=== PATIENT | male | born 1990 | race Hispanic/Latino ===

== ENCOUNTER 2024-09-20 17:00 | Emergency (ER) | payer BC ==
[~2024-09-20] VITALS: Ht 167.6 cm; Wt 104.3 kg
[2024-09-20 17:17] VITALS: BP 150/88; PULSE 113; RESP 22; TEMP 98.5; O2SAT 99
[2024-09-20] MEDS: ketOROlac 30MG VIAL (30MG/ML) IM ONE (17:25)
--- NOTE | 2024-09-20 17:37 | ERN ---
ED Note History of Present Illness Stated Complaint: SIDE PAIN;KIDNEY STONE Chief Complaint: Flank Pain Time Seen by MD: 17:29 Time Seen by Midlevel: 17:29 Dictation: The patient is a 34-year-old male with a history of kidney stones who presents to the emergency department with complaints of right flank pain onset Tuesday. Patient denies any fevers, denies any trauma, denies any hematuria. Allergies: Coded Allergies: No Known Drug Allergies (Unverified Allergy, Unknown, 09/20/24) Past Medical History Past Medical History: No Pertinent History Surgical History: None RN Note Reviewed/Agreed w/PFSH: Yes Review of System Dictation Constitutional: Negative for fever,chills, and weight loss Eyes: Negative for injury, pain,redness, and discharge ENT: Negative for injury,pain or swelling Cardiovascular: Negative for chest pain, palpitations, and edema Respiratory: Negative for shortness of breath, cough, and wheezing, Abdomen/GI: Negative for abdominal pain, nausea, vomiting, diarrhea, and constipation Back: Positive for right flank pain : Negative for injury, bleeding and discharge MS/Extremity: Negative for injury and deformity Skin: Negative for rash, and discoloration Neuro: Negative for headache, weakness, numbness, tingling, and seizure Psych: Negative for suicide ideation, homicidal ideation, and hallucinations Initial Vital Sign VS Vital Signs Date Time Temp Pulse Resp B/P (MAP) Pulse Ox O2 Delivery O2 Flow Rate FiO2 09/20/24 17:02 98.2 111 16 95 0 09/20/24 17:17 150/88 Room Air* 21 Physical Exam Dictation Vital Signs reviewed General Appearance: Alert, oriented x 3, no acute distress, well developed, nourished. Head and Face: non-traumatic. Eyes: PERRL, pink conjunctivas, eyelid no trauma, anterior chamber with arcus senilis. Ears: Pinnas intact and no signs of trauma or erythema ear canals clear and no discharge TM no erythema Nose: No discharge, no bleeding. Oropharynx: Mouth normal, tongue pink. pharynx clear,no erythema, tonsils no exudates, no abscesses noted, mucous membrane moist Neck: Supple, non-tender, no thyromegaly, no masses, no JVD, no bruits Breast:Deferred Chest:No tenderness, no crepitus, no paradoxical movement, no retractions Lungs:Clear, well-ventilated, symmetric, no rales, no wheezing, no rhonchi, no stridor, good breath sounds bilaterally Heart: Regular rate, regular rhythm, no murmur, no gallops Vascular: no peripheral edema, Abdomen: Soft, positive bowel sounds, nondistended, no guarding, nontender, no rebound, no masses no hepatomegaly, no splenomegaly, no Carpenter's sign, no hernias. Rectal: Deferred Genital: Deferred Neurological: Normal speech, motor function intact, sensory function intact Musculoskeletal: Neck nontender, full range of motion, back nontender, full range of motion, Extremities: nontender, full range of motion Skin: Color pink, dry, no turgor, no rash, no lacerations, no abrasions, no contusions. Lymphatic: Deferred Results (Laboratory/Radiology) Laboratory/Radiology Laboratory Tests Test 09/20/24 17:19 Urine Color YELLOW (YELLOW) Urine Appearance CLEAR (CLEAR) Urine pH 5.5 (5.0-8.0) Urine Specific Martin 1.025 (1.001-1.031) Urine Protein 20 mg/dL (NEGATIVE) H Urine Glucose (UA) NEGATIVE mg/dL (NEGATIVE) Urine Ketones NEGATIVE mg/dL (NEGATIVE) Urine Occult Blood LARGE (NEGATIVE) H Urine Nitrate NEGATIVE (NEGATIVE) Urine Bilirubin NEGATIVE mg/dL (NEGATIVE) Urine Urobilinogen 2.0 mg/dL (0.2-1.0) H Urine Leukocyte Esterase NEGATIVE Kala/uL Urine RBC TNTC /HPF (0-1) H Urine WBC 0-1 /HPF (0-1) Urine Bacteria None /HPF (None Seen) Labs Reviewed?: Yes ED Course ED Course Orders Procedure Category Date Status Time Urinalysis Profile LAB 09/20/24 Complete 17:07 Ketorolac PHA 09/20/24 Complete Tromethamine 30mg/Ml 17:30 Cbc With Differential LAB 09/20/24 Logged 17:33 Ct Abdomen/Pelvis W/O CT 09/20/24 Logged Contrast 17:33 Basic Metabolic Panel LAB 09/20/24 Logged 17:33 0.9%Nacl 1000ml (Ns PHA 09/20/24 Complete 1000ml) 18:00 Current Medications Medications (Trade) Dose Ordered Sig/Tran Route PRN Reason Start Time Stop Time Status Last Admin Dose Admin Ketorolac Tromethamine (toRADol) 30 mg ONCE ONCE IM 09/20/24 17:30 09/20/24 17:31 DC 09/20/24 17:25 Sodium Chloride 1,000 ml @ 0 mls/hr ONCE ONCE IV 09/20/24 18:00 09/20/24 17:51 DC Vital Signs Date Time Temp Pulse Resp B/P (MAP) Pulse Ox O2 Delivery O2 Flow Rate FiO2 09/20/24 17:17 98.4 113 22 150/88 99 Room Air* 0 21 09/20/24 17:02 98.2 111 16 95 0 Medical Decision Making MDM The patient is a 34-year-old male with a history of kidney stones who presents to the emergency department with complaints of right flank pain onset Tuesday. Patient denies any fevers, denies any trauma, denies any hematuria. Differential diagnosis: Kidney stone, pyelonephritis, dehydration, muscle spasms Was informed by nursing staff that patient left AMA because he did not want any labs or treatment. Risk and benefits discussed with patient. DX & DISP Disposition: AMA Departure Condition: Stable Time of Disposition: 17:53 I have reviewed the case, and I agree with, Diagnosis and Plan MAYA HEATHP Sep 20, 2024 17:37
[2024-09-20 17:40] LABS: ADD UA MICROSCOPIC YES; APPEARANCE,URINE CLEAR (CLEAR); BILIRUBIN,URINE NEGATIVE (NEGATIVE); COLOR,URINE YELLOW (YELLOW); GLUCOSE, URINE (UA) NEGATIVE (NEGATIVE); KETONES,URINE NEGATIVE (NEGATIVE); LEUKOCYTE ESTERASE ,URINE NEGATIVE Leu/uL (NEGATIVE); NITRATE,URINE NEGATIVE (NEGATIVE); OCCULT BLOOD,URINE LARGE (NEGATIVE); PH,URINE 5.5 (5.0-8.0); PROTEIN,URINE 20 mg/dL (NEGATIVE)
[2024-09-20 17:42] LABS: MUCUS,URINE FEW LPF (None Seen); RBC,URINE TNTC /HPF (0-1); WBC,URINE 0-1 /HPF (0-1)
[2024-09-20] MEDS ORDERED: 0.9%NACL 1000ML 1,000 ML IV ONE (18:00)
== END 2024-09-20 17:51 | disposition left against medical advice (07) ==
LOC: EDH 17:00
DX: R10.9 Unspecified abdominal pain (principal)
CPT/HCPCS: 99284; 81001; 96372; J1885